=== PATIENT | female | born 1995 | race Caucasian/White ===

== ENCOUNTER 2016-08-01 07:34 | Emergency (ER) | payer BC, OTHER ==
[~2016-08-01 07:34] MED LIST: BENZONATATE PO; NO MEDICATIONS; TRAZODONE PO; VIBRAMYCIN100 M1 PO; VOLTAREN75 MG PO
== END 2016-08-01 08:30 | disposition home or self-care (01) ==
LOC: SED 07:34
DX: Z69.81 Encounter for mental health services for victim of other abuse (principal); F31.9 Bipolar disorder, unspecified; F17.210 Nicotine dependence, cigarettes, uncomplicated
CPT/HCPCS: 99283

== ENCOUNTER 2016-12-23 15:12 | Emergency (ER) | payer BC, OTHER ==
--- NOTE | ~2016-12-23 | CR211 ---
[facility] A Service of [facility] RADIOLOGY TEXT RESULTS PATIENT: FREDDIE BLAND LOCATION: SED : [birth year] UNIT #: [id number] AGE: [address]: ANA ROMEO SEX: F ORDER DR: [id number] [address] [address] [id number] E MR#: [id number] Acc #: [id number] NAME: FREDDIE BLAND : 1995 SEX: F STUDY DATE/TIME: 12/23/2016 16:33 UNIT: SED ROOM: STUDY DESCRIPTION: CR Ribs Uni 2 View W PA Ch Rt Attending Physician: Ana Romeo Ordering Physician: Ana Romeo Primary Care Physician: Judith Faulkner M.D. MEDICAL IMAGING REPORT This report is preliminary unless electronic signature is present. EXAM Right ribs. HISTORY Twisting injury with cracking sensation and right-sided chest pain 30 minutes prior to arrival. TECHNIQUE Four views of the ribs were obtained. FINDINGS Both lungs are fully expanded and clear. No evidence of pneumothorax. No pleural thickening is seen. No displaced rib fractures or destructive bone lesions are seen. IMPRESSION Negative rib series. Dictated by... Rickey Lemon M.D. THIS IS AN ELECTRONICALLY VERIFIED REPORT Rickey Lemon M.D. at 12/24/2016 6:59 AM RLF/laureano TD: 12/24/2016 02:40 JOB #: [id number] MEDICAL IMAGING REPORT Page 1 of 1
== END 2016-12-23 16:58 | disposition home or self-care (01) ==
LOC: SED 15:12
DX: R07.81 Pleurodynia (principal); F17.210 Nicotine dependence, cigarettes, uncomplicated
CPT/HCPCS: 71101; 99283